=== PATIENT | female | born 1950 | race Caucasian/White ===

== ENCOUNTER 2020-10-07 04:17 | Day surgery (SDC) | payer OTHER ==
[2020-10-06 08:52] VITALS: BMI 29.2
[2020-10-07] MEDS ORDERED: LIDOCAINE 1%/EPI 1:100000 (50 ML MULTI DOSE VIAL) ONE (14:10)
[2020-10-07] MEDS ORDERED: BUPIVACAINE HCL 100 ML ONE (14:11)
[2020-10-07] MEDS ORDERED: MIDAZOLAM HCL 2 MG/2 ML SINGLE DOSE VIAL ONE (15:29)
[2020-10-07] MEDS ORDERED: PROPOFOL 20 ML ONE (15:29)
[2020-10-07] MEDS ORDERED: BUPIVACAINE HCL/PF 0.5% (5 MG/ML) 30 ML VIAL IJ ONE (15:43)
[2020-10-07] MEDS ORDERED: LIDOCAINE 1%/EPI 1:100000 (20 ML MULTI DOSE VIAL) IJ ONE (15:44)
[2020-10-07 18:23] VITALS: BP 152/86; PULSE 86; TEMP 98.6
== END 2020-10-07 19:20 | disposition home or self-care (01) ==
LOC: JASU-SURG 04:17
PROVIDERS: ATTEND Orthopaedic Surgery
PROC: 0SBD4ZZ Excision of Left Knee Joint, Percutaneous Endoscopic Approach (ICD-10-PCS; 2020-10-07)
PROC: 0SBD4ZZ Excision of Left Knee Joint, Percutaneous Endoscopic Approach (ICD-10-PCS; principal; 2020-10-07 16:30)
DX: S83.232A Complex tear of medial meniscus, current injury, left knee, initial encounter (principal); S83.282A Other tear of lateral meniscus, current injury, left knee, initial encounter; X58.XXXA Exposure to other specified factors, initial encounter; Y93.9 Activity, unspecified; Y92.9 Unspecified place or not applicable; Y99.9 Unspecified external cause status
CPT/HCPCS: 88304-TC; 94760

== ENCOUNTER 2022-08-10 04:10 | Day surgery (SDC) | payer OTHER ==
[2022-08-09 09:29] VITALS: BMI 29.2
[2022-08-10] MEDS ORDERED: oxyCODONE HCL 5 MG TABLET PO PRN (07:57)
[2022-08-10] MEDS ORDERED: ONDANSETRON 4 MG/2 ML VIAL IVPUSH PRN (07:57)
[2022-08-10] MEDS ORDERED: LACTATED RINGERS SOLUTION 1,000 ML IV SCH (08:00)
[2022-08-10] MEDS ORDERED: BUPIVACAINE HCL/PF 0.5% (5MG/ML) 10 ML VIAL ONE (09:10)
[2022-08-10 09:35] LABS: INR 1.02 (0.83-1.09); PROTHROMBIN TIME (PATIENT) 11.8 SEC (9.7-13.0)
[2022-08-10 09:38] LABS: ACTIVATED PTT 30.3 SECONDS (25.2-36.5)
[2022-08-10] MEDS ORDERED: PROPOFOL 20 ML ONE (10:47)
[2022-08-10] MEDS ORDERED: LIDOCAINE HCL 1%, 10 MG/ML (20ML VIAL) INF ONE (10:58)
[2022-08-10] MEDS ORDERED: BUPIVACAINE HCL/PF 0.5% (5MG/ML) 10 ML VIAL NR ONE (10:59)
[2022-08-10 11:56] VITALS: TEMP 97.4
[2022-08-10] MEDS ORDERED: ONDANSETRON 4 MG/2 ML VIAL ONE (12:05)
[2022-08-10] MEDS ORDERED: METOCLOPRAMIDE HCL INJECTION 10 MG/2 ML VIAL ONE (12:34)
[2022-08-10] MEDS ORDERED: METOCLOPRAMIDE HCL INJECTION 10 MG/2 ML VIAL IVPUSH ONE (12:45)
[2022-08-10 15:29] VITALS: BP 128/69; PULSE 82; RESP 20
== END 2022-08-10 16:05 | disposition home or self-care (01) ==
LOC: JASU-SURG 04:10
PROVIDERS: ATTEND Orthopaedic Surgery
PROC: 0SBC4ZZ Excision of Right Knee Joint, Percutaneous Endoscopic Approach (ICD-10-PCS; principal; 2022-08-10 10:15)
DX: M23.8X1 Other internal derangements of right knee (principal)
CPT/HCPCS: 36415; 85610; 85730; 94760